=== PATIENT | female | born 1985 | race Caucasian/White ===

== ENCOUNTER 2021-09-06 14:33 | Emergency (ER) | payer OTHER ==
[2021-09-06 16:02] LABS: CORONAVIRUS 2019 SARS-COV-2 NEGATIVE (NEGATIVE); INFLUENZA A NAA NEGATIVE (NEGATIVE)
== END 2021-09-06 17:27 | disposition left against medical advice (07) ==
LOC: FER 14:33
PROVIDERS: Emergency Medicine
DX: J06.9 Acute upper respiratory infection, unspecified (principal); Z20.822 Contact with and (suspected) exposure to COVID-19; Z53.29 Procedure and treatment not carried out because of patient's decision for other reasons
CPT/HCPCS: 71045; 87880; U0002

== ENCOUNTER 2021-10-14 22:38 | Emergency (ER) | payer OTHER ==
[2021-10-15 03:41] LABS: BASOPHIL 0.7 % (0-2); EOSINOPHIL 0.8 % (0-5); HCT 40.8 % (37.0-47.0); HGB 13.3 g/dl (12.5-16.0); MCH 28.8 pg (25.0-31.0); MCHC 32.6 g/dL (32.0-36.0); MCV 88.3 fL (78.0-100.0); MONOCYTE 7.8 % (0-12); MPV 9.9 fL (6.0-9.5); NEUTROPHIL 62.6 % (41-80); NRBC 0; PLT 218 K/uL (150-400); RBC 4.62 M/uL (4.20-5.40); RDW 13.6 % (11.5-14.0); WBC 7.5 K/uL (4.0-10.5)
[2021-10-15 04:08] LABS: ALBUMIN 3.5 g/dL (3.4-5.0); ALKALINE PHOSHATASE 59 U/L (46-116); ALT 32 U/L (14-59); AST 18 U/L (15-37); BILIRUBIN - TOTAL 0.5 mg/dL (0.2-1.0); BUN 10 mg/dL (7-18); BUN/CREAT RATIO (CALC) 11.6 RATIO; CHLORIDE 104 mmol/L (98-107); CO2 (BICARBONATE) 29 mmol/L (21-32); CREATININE 0.86 mg/dL (0.51-0.95); GLOBULIN (CALCULATION) 3.1 g/dL; GLUCOSE 88 mg/dL (74-106); POTASSIUM 3.8 mmol/L (3.5-5.1); TOTAL PROTEIN 6.6 g/dL (6.4-8.2)
[2021-10-15 04:09] LABS: ACETAMINOPHEN (TYLENOL) <2.0 ug/mL (10.0-30.0)
== END 2021-10-15 09:04 | disposition home or self-care (01) ==
LOC: FER 22:38
PROVIDERS: Internal Medicine
DX: F15.129 Other stimulant abuse with intoxication, unspecified (principal); Z20.822 Contact with and (suspected) exposure to COVID-19
CPT/HCPCS: 36415; 80053; 84145; 84484; 85025; 93005; 96372; G0480; J2060; U0002